=== PATIENT | female | born 1990 | race Caucasian/White ===

== ENCOUNTER 2020-05-11 01:03 | Outpatient (CLI) | payer BC, MEDICAID, SELFPAY ==
[2020-05-11 19:42] LABS: SARS-CoV-2 RNA PCR Negative
== END 2020-05-11 01:04 | disposition home or self-care (01) ==
LOC: ANHCOVIDDT 01:03
PROVIDERS: PCP Family Medicine; Visit Provider Otolaryngology
DX: Z01.812 Encounter for preprocedural laboratory examination (principal); Z20.822 Contact with and (suspected) exposure to COVID-19
CPT/HCPCS: C9803; U0003

== ENCOUNTER 2020-05-14 00:29 | Day surgery (SDC) | payer BC, MEDICAID, SELFPAY ==
[2020-05-04 15:24] VITALS: BMI 33.3
--- NOTE | 2020-05-13 09:02 | PM.IMHP ---
H&P: HPI History of Present Illness Date/Time: 05/13/20 09:02 Chief Complaint: Recurrent tonsillitis, chronic tonsillitis, tonsil stones Narrative: Marga Byrnes is a 29 year old female with recurrent on chronic tonsillitis as well as tonsil stones. Presents for planned operative procedure. No changes in medical history or symptoms. Review of Systems Constitutional: Constitutional: Denies fatigue, Denies fever(s) and Denies lethargy Eyes: Eyes: Denies blurry vision and Denies change in vision ENT: Reports as per HPI Cardiovascular: Cardiovascular: Denies chest pain Respiratory: Respiratory: Denies cough Endocrine: Endocrine: Denies fatigue Hematologic/Lymphatic: Hematologic/Lymphatic: Denies easy bleeding, Denies easy bruising and Denies lymphadenopathy Allergic/Immunologic: Allergic/Immunologic: Denies seasonal rhinorrhea [facility] [place] Social History Social History (Updated 01/23/20 @ 11:10 by Chloé Hewitt MA) Smoking status: Current every day smoker Tobacco type: cigarettes Smoking end date: 04/06/20 Additional smoking assessment comments: cigarettes smoking x 6 months Alcohol intake: current Drinks per week: 5 Substance use: never Spiritual care concerns: No Meds Home Medications and Allergies Home Medications Medication Instructions Recorded Confirmed Type omeprazole 40 mg capsule,delayed 40 mg PO BID 01/23/20 05/04/20 History release sertraline 50 mg tablet 50 mg PO DAILY 01/23/20 05/04/20 History Allergies Allergy/AdvReac Type Severity Reaction Status Date / Time Penicillins Allergy Intermediate Hives Verified 05/04/20 15:24 Exam Const: General: cooperative, healthy appearing, comfortable, well developed and alert HENMT: Head: normal to inspection, normocephalic and atraumatic Ears: hearing grossly normal bilaterally, external ears normal, TM's normal bilaterally and EAC's normal General nose exam: Normal external nose present, Normal nares present, No nasal polyps present, Normal nasal mucous membranes and turbinates present and Normal septum present Face and sinus: normal facial exam Mouth: Yes Normal oral and palatal mucosa present, Yes lip normal, Yes tongue normal, Yes oropharynx normal and Yes moist mucous membranes Teeth and gingiva: dentition normal and gingiva normal Throat: posterior oropharynx normal, tonisls abnormal ( 3+ erythematous edematous stones present) and uvula midline Eyes: General: appearance normal, both eyes and all related structures Periorbital: periorbital findings normal Eyelids: eyelids normal Conjunctivae: conjunctivae normal Sclera: sclerae normal Neck: Neck: normal visual inspection, full ROM and no lymphadenopathy Thyroid: thyroid normal Lymphatic: no lymphadenopathy noted Resp: Effort & Inspection: normal respiratory effort and able to speak in complete sentences Cardio: Jugular venous distension: no JVD Neuro: Cranial nerves: Yes CN's II-XII intact bilaterally Assessment and Plan Assessment and plan (1) Tonsil stone: Code(s): J35.8 - Other chronic diseases of tonsils and adenoids Status: Acute Assessment and Plan: The decision was made to perform a tonsillectomy. The risks and benefits were explained in great detail to the patient voiced understanding. These risks include a 1 in 30,000 chance of , 3-5% chance of bleeding, and significant pain, nasal regurgitation, change in voice, difficulty swallowing, failure to resolve problems. The patient voiced understanding and agreed. (2) Chronic tonsillitis: Code(s): J35.01 - Chronic tonsillitis Status: Acute (3) Tonsil stone: Code(s): J35.8 - Other chronic diseases of tonsils and adenoids Status: Acute
[2020-05-14] VITALS (9 sets, daily range): BP systolic 112–125; BP diastolic 61–84; PULSE 80–94; RESP 12–20; TEMP 36.5–37.1; O2SAT 97–100
--- NOTE | 2020-05-14 07:04 | WPDHPUPDATE1 ---
History and Physical Update Update Date/Time: 05/14/20 07:04 History and Physical has been reviewed, including an updated exam of the patient. There are NO changes in the patient's condition. Risks, benefits, and alternatives have been discussed and questions answered. Patient agrees to proceed with procedure.
--- NOTE | 2020-05-14 07:52 | WPDANESEPPF ---
Anes - Initial Pre Proc Eval Procedure: Operation Date: 05/14/20 09:45 Proposed Procedures p Tonsillectomy - Clement Nogueira MD Date/Time: 05/14/20 07:52 Surgeon: Clement Nogueira MD Pre Op Diagnosis: Chronic Tonsilitis Patient Data Age: 29 Gender: F Height: 1.65 m Weight: 94.9 kg Allergies Allergy/AdvReac Type Severity Reaction Status Date / Time Penicillins Allergy Intermediate Hives Verified 05/14/20 07:38 Home Medications Medication Instructions Recorded Confirmed Type omeprazole 40 mg capsule,delayed 40 mg PO BID 01/23/20 05/14/20 History release sertraline 50 mg tablet 50 mg PO DAILY 01/23/20 05/14/20 History Patient hx anesthesia problems: none Family hx anesthesia problems: none [facility] Past Medical History Medical History (Updated 05/13/20 @ 11:49 by Jefe Mark DO) Anxiety Depression GERD (gastroesophageal reflux disease) PONV (postoperative nausea and vomiting) Surgical History Surgical History (Updated 05/13/20 @ 11:49 by Jefe Mark DO) History of cholecystectomy Social History Social History (Updated 01/23/20 @ 11:10 by Chloé Hewitt MA) Smoking status: Current every day smoker Tobacco type: cigarettes Smoking end date: 04/06/20 Additional smoking assessment comments: cigarettes smoking x 6 months Alcohol intake: current Drinks per week: 5 Substance use: never Living arrangements: with family Spiritual care concerns: No Anes - Eval Final PreProcedure Day of Procedure 05/14/20 07:52 Patient weight: obese Heart: regular rate and rhythm Lungs: clear to auscultation and normal air movement Airway: Mallampati scale class 1 Neurological: alert and oriented Last oral intake: >/= 8 hours ASA classification: II Emergent: no Anesthetic plan: proceed Anesthesia type and monitoring: general ETT and standard monitoring Informed Consent: The patient's anesthetic plan and its attendant risks and benefits were discussed with the patient/family/POA. Questions were solicited and answers provided to the satisfaction of the patient/family/POA.
[2020-05-14] MEDS: LACTATED RINGERS 1,000 ML 30 ML IV CONT ×2 (08:20→09:42)
[2020-05-14] MEDS: ACETAMINOPHEN 500 MG TABLET 1000 MG PO (08:20)
[2020-05-14] MEDS: FAMOTIDINE 20 MG/2 ML VIAL IV PUSH (08:21)
[2020-05-14] MEDS: SCOPOLAMINE 1.5 MG PATCH TRANSDERM (08:21)
--- NOTE | 2020-05-14 09:38 | SUR.OPER ---
ebl 20
--- NOTE | 2020-05-14 09:54 | PM.PROC ---
Procedure Note - Detailed Date of procedure: 05/14/20 Pre-op diagnosis: Chronic Tonsilitis Post-op diagnosis: same Procedure performed: Tonsillectomy Description of procedure: The patient was correctly identified and consent was verified in the preoperative holding area. The patient was then brought to the operating room and a time-out was performed. The patient was then prepped and draped for the aforementioned procedure. General anesthesia was induced and endotracheal tube was secured the patient's airway and taped in the midline. The McIvor mouth gag was inserted revealing tonsils which were 3+ endophytic cryptic erythematous edematous with stones present. They were removed in extracapsular plane using Bovie electrocautery at a setting of 10 and 12. Hemostasis was achieved using suction Bovie at a setting of 12 and 15. Following the procedure hemostasis was noted to be excellent. Blood loss was approximately 20 cc. There were no complications. Care of the patient was turned over to Anesthesiology. I performed all dictated portions of the procedure. Anesthesia: GLMA Surgeon: Clement Nogueira MD Estimated blood loss (mL): 20 Complications: No immediate complications Condition: stable Disposition: PACU
[2020-05-14] MEDS: fentaNYL CITRATE INJ (*CRX) 100 MCG/2 ML VIAL 25 MCG IV PUSH ×3 (09:57→10:07)
[2020-05-14] MEDS: oxyCODONE (*CRX) 5 MG/5 ML ORAL SOLN IR PO (10:59)
== END 2020-05-14 12:10 | disposition home or self-care (01) ==
PROVIDERS: PCP Family Medicine; Visit Provider Otolaryngology
PROC: (CPT 42826; principal; 2020-05-14 09:45)
DX: J35.01 Chronic tonsillitis (principal); J35.8 Other chronic diseases of tonsils and adenoids; F17.210 Nicotine dependence, cigarettes, uncomplicated
CPT/HCPCS: 42826; 88302; 88304; A9270; J0330; J1100; J2250; J2405; J2704; J3010; J7120